=== PATIENT | male | born 2000 | race Caucasian/White ===

== ENCOUNTER 2022-08-12 15:46 | Emergency (ER) | payer OTHER, SELFPAY ==
[2022-08-12 16:15] VITALS: BP 131/87; PULSE 100; RESP 16; TEMP 37.1; O2SAT 97; BMI 42.1
--- NOTE | 2022-08-12 16:18 | PC.NURSE ---
after triage, tech explained situation to this nurse. call was made to charge nurse in ER for pt to be transferred to ED for further management.
--- NOTE | 2022-08-12 16:20 | HMH.EDPSYCH ---
Discharge Plan Disposition Chief Complaint: Psychiatric Symptoms Prescriptions Prescriptions: No Action oxcarbazepine 300 mg Tablet 600 mg PO BID Referrals Follow up/Referrals: Provider,Referral, [Primary Care Provider] - See instructions Activity Restrictions/Add. Instructions Additional Instructions/Restrictions: Take all medications as prescribed. Return to the emergency department immediately if you feel worse in any way. Clinical Impressions Clinical Impression: Adjustment disorder Instructions Patient Instructions: DI for Adjustment Disorder Discharge ED Provider: Nick Salcedo General Chief Complaint: Psychiatric Symptoms Stated Complaint: need medication Time Seen by Provider: 08/12/22 16:19 Mode of Arrival: Ambulatory Source of Information: Patient Description of Symptoms (Recalled from ER Triage Doc. by RN): pt reports that he recently moved here from [place]. pt reports that he does not have access to any of his information including drivers license, social security number. pt only knows last 4 digits. pt reports he has been having thoughs of harming himself, this occurs when he does not have his medication. History of Present Illness HPI Narrative: The patient presents to the emergency department complaining of suicidal thoughts. He is from [place] and was living with his girlfriend. The patient reports getting into an argument with his girlfriend today. Subsequently she asked him to leave. He is now homeless. He has a history of depression, bipolar disorder, and anxiety. He takes Abilify and Trileptal. He has not missed any doses. He also has a history of prior suicide attempt by overdose as well as cutting his wrists. The patient does have a plan of cutting his wrists. He is willing to contract for safety while he is in the emergency department. He admits to smoking marijuana occasionally but denies any other drug use. MD complaint: suicidal ideation Related Data Home Medications Medication Instructions Recorded Confirmed oxcarbazepine 300 mg tablet 600 mg PO BID Mood 08/12/22 08/12/22 Allergies Allergy/AdvReac Type Severity Reaction Status Date / Time No Known Allergies Allergy Verified 08/12/22 16:32 [facility] Disclaimer: The information contained in this section may have been updated after the patient was seen, as this information can be updated by other users. Social History Smoking Status: Current some day smoker alcohol intake: never current occupational status: employed Travel in the last 8 weeks: None ROS Obtained: Yes All systems reviewed & no additional complaints except as documented Physical Exam General General appearance: alert Head Head exam: atraumatic Eye Eye exam: Present normal appearance ENT ENT exam: Present normal exam Neck Neck exam: Present normal inspection and full ROM; Absent tenderness or meningismus Chest Chest inspection: Present normal inspection and symmetric chest wall rise; Absent tenderness Respiratory Respiratory exam: Present normal lung sounds bilaterally; Absent respiratory distress or accessory muscle use Cardiovascular Cardiovascular exam: Present regular rate, normal rhythm and normal heart sounds Abdominal Exam Abdominal exam: Present soft and normal bowel sounds; Absent distention, tenderness, heel tap sign, Dixon's sign, Rovsing's sign, tenderness at McBurney's Point or mass Extremities Exam Extremities exam: Present normal inspection, full ROM and other (Well-healed scars to the volar aspect of his left wrist from prior suicide attempt.) Back Exam Back exam: Present normal inspection; Absent CVA tenderness (R) or CVA tenderness (L) Neurological Exam Neurological exam: Present alert and oriented X3 Psychiatric Psychiatric exam: Present normal affect, normal mood and suicidal ideation (The patient states that he has persistent thoughts of suicide. He has a plan of slitting his wrist.); Absent ag
[2022-08-12 16:28] VITALS: BP 126/96; PULSE 92; RESP 19; TEMP 36.9; O2SAT 96; BMI 42.3
--- NOTE | 2022-08-12 16:35 | PC.NURSE ---
Patient placed in room 8. He was placed in hospital gown, given water, and is safe with sitter at bedside within arms reach. NAD from patient. Awaiting labs and UA; however, will begin [place] protocol
--- NOTE | 2022-08-12 16:43 | PC.NURSE ---
Lab here to collect blood
[2022-08-12 16:52] LABS: Microscopic, Urine URINE MICROSCOPIC (MICROSCOPIC)
[2022-08-12 16:54] LABS: Appearance,Urine CLEAR (Clear); Bilirubin,Urine Negative (Negative); Blood, Urine Negative (Negative); Color,Urine YELLOW (Yellow); Glucose,Urine (UA) Negative (Negative); Ketones,Urine Negative (Negative); Leukocyte Esterase,Urine Negative (Negative); Nitrate,Urine Negative (Negative); PH,Urine 5.5 (5.0-8.5); Protein,Urine Negative (Negative); Specific Gravity, Urine >= 1.030 (1.005-1.030); Urobilinogen,Urine 0.2 EU/dl (0.2)
[2022-08-12 16:57] LABS: Basophils # 0.1 K/mm3 (0-0.2); Basophils % 0.6 % (0.1-2.0); Eosinophils # 0.3 K/mm3 (0.0-0.4); Hematocrit 45.9 % (42.0-52.0); Hemoglobin 15.5 g/dL (14.1-18.0); Lymphocytes # 1.8 K/mm3 (0.7-4.5); Lymphocytes % 19.3 % (10-50); Mean Corpuscular HGB Conc 33.6 g/dL (31.8-35.4); Mean Corpuscular Hemoglobin 27.8 pg (27.0-31.2); Mean Corpuscular Volume 82.6 fl (80-94); Mean Platelet Volume 7.9 fl (7.4-10.4); Monocytes # 0.5 K/mm3 (0.1-1.0); Monocytes % 5.7 % (1.7-9.3); Neutrophils # 6.7 K/mm3 (1.8-7.8); Neutrophils % 71.5 % (37.0-80.0); Platelet Count 245 K/mm3 (142-424); Red Blood Count 5.56 M/mm3 (4.60-6.20); White Blood Count 9.4 K/mm3 (4.8-10.8)
[2022-08-12 17:02] LABS: Chloride 104 mmol/L (98-107); Sodium 139 mmol/L (136-145)
[2022-08-12 17:03] LABS: Potassium 3.7 mmoL/L (3.5-5.1)
[2022-08-12 17:05] LABS: Alanine Aminotransferase 31 U/L (12-78); Albumin Level 4.7 g/dl (3.5-5.0); Albumin/Globulin Ratio 1.6 (1.1-1.8); Alkaline Phosphatase 185 U/L (38-126); Anion Gap 12.7 mEq/L (5-15); Aspartate Amino Transferase 29 U/L (17-59); Bilirubin,Total 0.5 mg/dl (0.2-1.3); Blood Urea Nitrogen 14 mg/dl (9-20); Calcium 8.9 mg/dl (8.4-10.2); Carbon Dioxide 26 mmol/L (22.0-30.0); Creatinine Clearance Estimated 160 mL/min (50-200); Estimated Glomerular Filt Rate 122 ml/min (>60); GFR (African American) 148 ML/MIN (>60); Glucose 110 mg/dl (74-100); Total Protein,Serum 7.7 g/dl (6.3-8.2)
[2022-08-12 17:06] LABS: Amphetamine/Metha Screen,Urine Negative ng/ml (<1000); Barbiturates Screen,Urine Negative ng/ml (<200)
[2022-08-12 17:07] LABS: Benzodiazepines Screen,Urine Negative ng/ml (<200); Cannabinoid Screen,Urine Positive ng/ml (<50)
[2022-08-12 17:08] LABS: Cocaine Screen,Urine Negative ng/ml (<300)
[2022-08-12 17:09] LABS: Methadone Screen,Urine Negative ng/ml (<300); Opiate Screen,Urine Negative ng/ml (<300)
[2022-08-12 17:10] LABS: Phencyclidine Screen,Urine Negative ng/ml (<25)
--- NOTE | 2022-08-12 17:10 | PC.NURSE ---
Reached out to [facility] and spoke to Leismyrna for mental health intake. Awaiting lab results and will fax those to her. She will reach back out with a ZOOM ID#
[2022-08-12 17:21] LABS: Acetaminophen < 10 ug/ml (10-30); Salicylate < 1.0 mg/dL (2.0-20.0)
--- NOTE | 2022-08-12 17:21 | ECG_ITS ---
APPROVED REPORT Exam: Resting ECG HR:65 bpm ECG Measurements Heart Rate 65 AXES WA 146 P 45 QRSd 105 QRS 46 QT 376 T 45 QTc 388 Conclusion SINUS RHYTHM NONSPECIFIC ST ELEVATION [0.05+ mV ST ELEVATION] BORDERLINE ECG UNCONFIRMED REPORT Electronically signed by : Maciej Cartagena MD 08/13/2022 15:40:34
[2022-08-12 17:24] LABS: Coronavirus 19, PCR Not Detected (NotDetected); Influenza A, PCR Not Detected (NotDetected); Influenza B, PCR Not Detected (NotDetected)
[2022-08-12 17:42] LABS: Ethyl Alcohol < 10 mg/dl (0-10)
[2022-08-12 17:56] LABS: Triiodothryronine (T3) Uptake 33 % (23.5-40.5)
[2022-08-12 17:57] LABS: Free Thyroxine Index 2.1 ug/dL (5.93-13.13); T4 (Thyroxine) 6.4 ug/dl (5.53-11.0)
--- NOTE | 2022-08-12 17:57 | PC.NURSE ---
girlfriend present at bs, pt requesting for girlfriend to come and girlfriend requesting to see pt due to information from his mom. aware and states that if staff is present and door is open, he is ok with girlfriend coming back to see pt. Marion Molina at bs
[2022-08-12 18:03] LABS: Squamous Epithelial Cell,Urine Occasional #/hpf (0-5); WBC,Urine Occasional #/hpf (0-3)
[2022-08-12 18:10] LABS: Thyroid Stimulating Hormone 1.81 uIU/mL (0.465-4.68)
--- NOTE | 2022-08-12 18:17 | PC.NURSE ---
Called [facility] for update. Spoke to Dora who is now taking over intake for the night. She is reviewing patient's chart now and will call back for intake
--- NOTE | 2022-08-12 18:30 | PC.NURSE ---
spenser in room, girlfriend came for a visit [facility],call light @
--- NOTE | 2022-08-12 18:41 | PC.NURSE ---
Patient is on ZOOM meeting with Dora at [facility] for mental health evaluation
--- NOTE | 2022-08-12 18:55 | PC.NURSE ---
ZOOM meeting complete. AWaiting call back from [facility]
--- NOTE | 2022-08-12 19:04 | PC.NURSE ---
Spoke to Dora at [facility] and she states, Dr. Moreno is unwilling to accept this patient and says to send him to [facility] if his SI continues. Attending here notified
--- NOTE | 2022-08-12 19:31 | PC.NURSE ---
Awaiting re-evaluation from ED attending...
[2022-08-12 20:01] VITALS: BP 139/88; PULSE 88; RESP 17; TEMP 36.8; O2SAT 97
--- NOTE | 2022-08-12 20:02 | PC.NURSE ---
Patient agrees that he is not suicidal. he was saying those things in the heat of the moment earlier and does not want to harm himself. Patient has spoken to his parents in [place] and he is going to be going back to his parent's home down there for a better support system
== END 2022-08-12 20:03 | disposition home or self-care (01) ==
LOC: UTC 15:58 → ER 16:18
PROVIDERS: Emergency Provider Emergency Medicine
DX: R45.851 Suicidal ideations (principal); F43.20 Adjustment disorder, unspecified
CPT/HCPCS: 80053; 80305; 80329; 81001; 84436; 84443; 84479; 85025; 93005; 99285; C9803; U0003; U0005